=== PATIENT | female | born 1950 | race Two or more races ===

== ENCOUNTER 2025-01-22 11:20 | Day surgery (SDC) | payer OTHER, MEDICAID, SELFPAY ==
--- NOTE | 2025-01-19 06:34 | EKG_ITS ---
[facility] Test Date: 2025-01-19 Pat Name: ELLA JONES Department: Room: - Gender: Female Automobile Locator: SHAY : 1950 Requested By: Kevin Galloway Order Number: [id number] Reading MD: Kevin Galloway Measurements Intervals [place] Rate: 64 P: 20 DE: 204 QRS: 61 QRSD: 77 T: 16 QT: 411 QTc: 426 Interpretive Statements SINUS RHYTHM No previous ECG available for comparison /store/S0/[id number]
[2025-01-19 11:51] VITALS: BMI 24.9
[2025-01-19 12:18] LABS: Collection Type, Urine Clean Catch
[2025-01-19 13:17] LABS: Basophils # (Auto) 0.1 Thou/mm3 (0.0-0.2); Basophils % (Auto) 1 % (0-2.5); Eosinophils # (Auto) 0.2 Thou/mm3 (0.0-0.5); Eosinophils % (Auto) 3 % (0-10); Hematocrit 36.6 % (36.0-46.0); Immature Granulocytes % (Auto) 0 % (0-0); Immature Granulocytes Auto 0.02 Thou/mm3 (0.00-0.00); Lymphocytes # (Auto) 1.6 Thou/mm3 (1.0-4.8); Lymphocytes % (Auto) 22 % (10-50); Mean Corpuscular HGB Conc 32.8 g/dl (31.0-37.0); Mean Corpuscular Hemoglobin 29.3 pg (25.0-35.0); Mean Corpuscular Volume 89 fL (80-100); Monocytes # (Auto) 0.7 Thou/mm3 (0.0-0.8); Monocytes % (Auto) 10 % (0-12); Neutrophils # (Auto) 4.5 Thou/mm3 (1.8-7.7); Neutrophils % (Auto) 64 % (37-80); Nucleated Red Blood Cell % 0 /100 WBC (0); Platelet Count 304 Thou/mm3 (140-440); RDW Standard Deviation 42.5 fL (36.4-46.3); White Blood Count 7.1 Thou/mm3 (3.6-11.0)
[2025-01-19 13:18] LABS: Bilirubin,Urine Negative (Negative); Blood,Urine Negative (Negative); Clarity,Urine Clear (Clear/Hazy); Color,Urine Colorless (Lt Yel-Yel); Glucose, Urine Negative (Negative); Ketones,Urine Negative (Negative); Leukocyte Esterase,Urine Negative (Negative); Nitrite,Urine Negative (Negative); PH,Urine 6.5 (5.0-7.0); Protein,Urine Negative (Neg - Trace); RBC,Urine < 1 /hpf (0-3); Specific Gravity,Urine 1.008 (1.001-1.035); Squamous Epithelial Cell,Urine 1 /hpf (0-5); Urobilinogen,Urine Negative mg/dL (0.0-1.0); WBC,Urine < 1 /hpf (0-5)
[2025-01-19 13:26] LABS: Partial Thromboplastin Time 27.3 Seconds (22.0-36.0); Prothrombin Time 10.6 Seconds (9.0-12.2)
[2025-01-19 13:31] LABS: Alanine Aminotransferase 13 U/L (10-49); Albumin, Serum 4.7 gm/dL (3.4-4.8); Albumin/Globulin Ratio 1.8 (1.2-2.2); Alkaline Phosphatase 82 U/L (46-116); Anion Gap 8 (7-16); Aspartate Amino Transferase 21 U/L (0-34); BUN/Creatinine Ratio 19 Ratio (12-20); Bilirubin,Total 0.9 mg/dL (0.3-1.2); Blood Urea Nitrogen 15 mg/dL (9-23); Calcium 9.4 mg/dL (8.3-10.6); Calcium (Corrected) 9.4 mg/dL (8.5-10.1); Carbon Dioxide 30.4 mMol/L (20.0-31.0); Chloride 98 mMol/L (98-107); Creatinine (Component) 0.8 mg/dL (0.6-1.3); Estimated Creatinine Clearance 50.5 mL/min (>60); Globulin 2.6 gm/dL (2.3-3.5); Glucose 101 mg/dL (74-106); Osmolality,Calculated 272 (275-295); Potassium 3.7 mMol/L (3.4-5.1); Sodium 136 mMol/L (136-145); Total Protein 7.3 gm/dL (5.7-8.2); eGFR > 60 See Note
[2025-01-22] VITALS (10 sets, daily range): BP systolic 137–180; BP diastolic 52–96; PULSE 60–100; RESP 13–20; TEMP 36.2–36.8; O2SAT 95–100; BMI 25.9
--- NOTE | 2025-01-22 16:27 | PD.SUROPNT ---
Date of Procedure 01/22/25 Pre Op Diagnosis Left inguinal hernia Post Op Diagnosis Left sliding inguinal hernia Procedure Repair of sliding left inguinal hernia Findings This patient had a large hernia with weakness in the posterior wall of the inguinal canal. She had a sliding hernia with colon as part of the wall. Procedure Description Patient was examined in the preop area. Site and site were marked. Procedure was discussed with the patient in detail. The risk benefits alternatives were discussed with the patient and informed consent was obtained. The risks include bleeding infection recurrence of the hernia testicular atrophy and anesthesia related risks. The patient was brought to the operating room and placed on the operating table in supine position. General anesthesia was administered in a satisfactory manner. IV antibiotics were given to the patient. Local anesthesia 0.25% Marcaine was used as an adjunct. Curvilinear oblique incision is made in the right groin. This was deepened through the layers of skin subcutaneous tissue and Yordan's fascia. The superficial inferior epigastric veins were ligated and divided. Hemostasis was achieved. The hernia protrusion is quite large and extending out to from the external ring. External oblique aponeurosis was cleared and the external ring was defined. The shelving edge of the inguinal ligament was defined externally. A longitudinal incision was made in the external oblique aponeurosis. The inguinal canal was opened. The ilioinguinal nerve was protected. Upper and lower flaps of the external oblique aponeurosis were dissected away from the hernia sac. This was retracted with a self-retaining retractor. The cremaster muscle was incised and the hernia sac was identified. Hernia sac was gently dissected circumferentially at the neck. The round ligament was identified and it was ligated and divided and removed. After the sac was from the round ligament structures it was examined and the sliding nature of the hernia sac was found. Portion of the hernia sac was removed as specimen. The peritoneum was closed with 3-0 Vicryl pursestring suture and the hernia was reduced en viki. There was no tight hernia ring. The posterior wall of the inguinal canal was then examined. The conjoined tendon was defined. The posterior wall was repaired with interrupted 0 Ethibond interrupted sutures. This was approximating the the shelving edge of the inguinal ligament with the conjoined tendon and fascia transversalis. The first suture is passing through the periosteum of the pubic tubercle. The second suture was passing through the Ashish's ligament. Rest of them passing through the shelving edge of the inguinal ligament, fascia transversalis and conjoined tendon. Internal ring was closed. Operative field is thoroughly irrigated with saline solution and hemostasis is again achieved. The ilioinguinal nerve was placed back into the inguinal canal. External oblique aponeurosis is approximated by 3-0 PDS continuous suture. The external ring was closed. The subcutaneous tissues approximated by 3-0 Vicryl interrupted sutures and skin is approximated by 4-0 Monocryl subcuticular stitches. Steri-Strips were applied. Patient tolerated procedure very well. Complications none. Anesthesia GETA Drains None. Implants None. Pathology / specimen Other (Hernia sac) Estimated Blood Loss 5 Condition Stable Disposition PACU Surgeon Kevin Galloway MD Surgical Staff Operation Date: 01/22/25 13:45 Case Staff Anesthesiologist: Demario King RNchief controller center: Miesha Sommer NOTE SPECIALIST student Braden Jordan RN metal bonding worker Rosanna REDD metal bonding worker in processing Elsi Donis certified surgical tech/first assistant
--- NOTE | 2025-01-22 16:39 | SUR.PHASEI ---
pt received from OR in recovery bay 1. pt asleep but responds to voice, breathing unlabored on room air. v/s stable. pt dressing to abd cdi. report received from Dr. King and Braden RN/Rosanna REDD.
--- NOTE | 2025-01-22 18:30 | SUR.PHASEII ---
pt able to tolerate oral fluids without difficulty swallowing or nausea/vomiting.
--- NOTE | 2025-01-22 18:45 | SUR.PHASEII ---
pt awake and alert, breathing unlabored on room air. v/s stable. pt dressing to lower abd cdi. pt able to ambulate to wheelchair with steady gait. d/c instructions given with daughter Laila in room using jingle writer Valdez corrigan, all questions answered. pt d/c via wheelchair with all belongings.
--- NOTE | 2025-01-23 14:15 | PD.ANESPROG ---
Documentation for date of: 01/23/25 POST ANESTHESIA NOTE: Patient had GETA for L inguinal hernia repair yesterday. I just called her number for follow up but no answer. Demario King MD Anesthesia Progress Note Progress Note Most recent Vital Signs: Last Vital Signs Temp 97.4 F 01/22/25 18:10 Pulse 62 01/22/25 18:10 Resp 16 01/22/25 18:10 BP 146/78 H 01/22/25 18:10 Pulse Ox 95 01/22/25 18:10 O2 Flow Rate 2 01/22/25 17:55
== END 2025-01-22 18:45 | disposition home or self-care (01) ==
PROVIDERS: PCP Family Medicine; Referring Provider Specialist; Visit Provider Specialist
PROC: (CPT 49525; principal; 2025-01-22 13:30)
DX: K40.90 Unilateral inguinal hernia, without obstruction or gangrene, not specified as recurrent (principal)
CPT/HCPCS: 49525; 36415; 80053; 81001; 85025; 85610; 85730; 93005; A4217; A4649; J0690; J1100; J2405; J2704; J2710; J3010; J3490; J1596; J1805

== ENCOUNTER 2025-02-01 13:26 | Inpatient (IN) | payer OTHER, MEDICAID, MEDICARE, SELFPAY ==
[2025-02-01] VITALS (7 sets, daily range): BP systolic 134–156; BP diastolic 55–91; PULSE 76–90; RESP 12–64; TEMP 36.1–36.4; O2SAT 92–95; BMI 24.5
--- NOTE | 2025-02-01 15:26 | PD.SURHP ---
HPI Date of Admission 02/01/25 13:26 Chief Complaint Chief Complaint: Left groin postop hematoma HPI This 74 years old female patient had a large left inguinal hernia repair done about 10 to 12 days ago. She developed swelling in the left groin and she was found to have a postoperative hematoma in the left groin that requires incision and drainage patient is admitted here for that purpose. She will also need IV antibiotics. Further management will be necessary after the I&D was carried out. She also needs IV pain control. The risk benefits and alternatives were discussed with the patient and informed consent is obtained for incision and drainage of the left groin hematoma. Past Medical History Past Medical History NEUROLOGIC: Negative Neurological Disorders or Seizures CARDIAC: Positive Cardiac Disorders, Hypercholesterolemia, Hypertension and Varicose Veins; Negative Congestive Heart Failure RESPIRATORY: Negative Chronic Obstructive Pulmonary Disease (COPD) GASTROINTESTINAL: Positive Ulcer; Negative Gastrointestinal Disorders or Hepatitis GENITOURINARY: Negative Genitourinary Disorders or Renal Disease REPRODUCTIVE: Positive Previous Pregnancies MUSCULOSKELETAL: Negative Musculoskeletal Disorders ENDOCRINE: Negative Endocrine Disorders, Diabetes Mellitus Type 1 or Diabetes Mellitus Type 2 HEMATOLOGIC: Negative Blood Disorders OTHER HISTORY: Negative Hospitalization, Autoimmune Disease, Shingles, Blood Transfusions, Blood Transfusion Reaction, Anesthesia Reactions or Cancer Family History FAMILY HISTORY: Positive Family Cardiac Disorders and Family Surgery; Negative Family Psychiatric Problems, Family Respiratory Disorders, Family Gastrointestinal Problems, Family Cancer or Family Anesthesia Reaction Surgical History SURGICAL: Positive Tubal Ligation Social History SMOKING STATUS: Never smoker Meds Home Medications and Allergies Home Medications ?Medication ?Instructions ?Recorded ?Confirmed ?Type ergocalciferol (vitamin D2) 1,250 1,250 mcg PO QWEEK 01/19/25 01/19/25 History mcg (50,000 unit) capsule losartan 50 mg-hydrochlorothiazide 1 tab PO DAILY 01/19/25 01/19/25 History 12.5 mg tablet omeprazole 40 mg capsule,delayed 40 mg PO DAILY PRN acid reflux 01/19/25 01/19/25 History release rosuvastatin 20 mg tablet 20 mg PO DAILY 01/19/25 01/19/25 History Allergies Allergy/AdvReac Type Severity Reaction Status Date / Time No Known Allergies Allergy Verified 01/22/25 11:38 Exam Constitutional Constitutional: no acute distress Routine HEENT Exam Head: Present normocephalic Eye: Present EOMI and PERRL ENT: Present mucous membranes moist Routine Neck Exam Neck: Present supple and trachea midline Routine Chest/Breast/Axilla Exam Chest wall: Absent tenderness or mass Routine Respiratory Exam Respiratory: Present chest non-tender, lungs clear, normal breath sounds and no resp distress; Absent respiratory distress Routine Cardiovascular Exam Cardiovascular: Present RRR Routine Abdominal Exam Abdominal: Present soft and normoactive bowel sounds Comments: The left groin has recent surgical incision and swelling and ecchymosis indicative of a postop hematoma. There is no cellulitis or drainage. The needle aspiration showed that is a solid hematoma and a clot therefore requires a surgical I&D. Routine Extremities Exam Extremities: Present full ROM Routine Skin Exam Skin: Present intact, dry and warm Routine Neurological Exam Neurological: Present alert, oriented X3 and CN II-XII intact Routine Psychiatric Exam Psychiatric: Present normal affect and normal thought process Assessment & Plan Problem List (1) Postoperative hematoma: Qualifiers: Surgical complication system/body Area: musculoskeletal system Procedure type: musculoskeletal Qualified Code(s): M96.840 - Postprocedural hematoma of a musculoskeletal structure following a musculoskeletal system procedure Status: Acute (2) Left inguinal hernia: Status: Acute Plan Incision and drainage of the left groin hematoma. Quality Measures Quality Measures none Advance care planning discussed with:: patient
[2025-02-01] MEDS: DEXTROSE 5%-LACTATED RINGERS 1,000 ML 100 ML IV (15:49)
[2025-02-01] MEDS: ceFAZolin/D5W 2 GM IV 2 GM/100 ML BAG IV ×2 (15:57→21:53)
[2025-02-01 17:37] LABS: Anion Gap 9 (7-16); BUN/Creatinine Ratio 12 Ratio (12-20); Blood Urea Nitrogen 11 mg/dL (9-23); Calcium 9.4 mg/dL (8.3-10.6); Carbon Dioxide 31.3 mMol/L (20.0-31.0); Chloride 95 mMol/L (98-107); Creatinine (Component) 0.9 mg/dL (0.6-1.3); Estimated Creatinine Clearance 44.6 mL/min (>60); Glucose 126 mg/dL (74-106); Osmolality,Calculated 271 (275-295); Potassium 3.2 mMol/L (3.4-5.1); Sodium 135 mMol/L (136-145); eGFR > 60 See Note
--- NOTE | 2025-02-01 18:45 | SUR.PHASEI ---
Pt. arrived to recovery via gurney, eyes open, AAOx3, no c/o pain or nausea at this time, lung sounds clear, equal expansion melchor., dressing to left side of groin, kerlix roll, packing, abdominal pad and metaport tape in place, no active bleeding or redness noted, bruising to left upper thigh noted. Report received from Wally REDD and Dr. King.
--- NOTE | 2025-02-01 18:49 | ESOP_ITS ---
Date of Procedure 02/01/25 Pre Op Diagnosis Postoperative wound hematoma left groin Post Op Diagnosis Same. Procedure Incision and drainage of wound hematoma left groin Findings This patient had a previous left inguinal hernia repair. She had a large hernia. She developed a hematoma in the subcutaneous tissue. This required drainage and removal of the blood clots. There was no active bleeding. There was some oozing therefore I decided to pack the wound and bring the patient back in 48 hours Procedure Description Patient is evaluated in the preoperative area. The procedure is discussed in detail with the patient with an online staff interpreter. Patient understood the procedure and that to be incision and drainage. Risk benefits and alternatives were discussed with the patient and the daughter and informed consent is obtained. The patient is then taken to the operating room general anesthesia is administered. Abdomen groin and genitalia thigh regions are prepped and draped in usual manner. Patient was given IV antibiotics. Patient procedure Timeout was carried out in the and the procedure was started. The previous incision was opened and semisolid blood clots were removed. After all the blood clots were physically removed then the cavity was irrigated and debrided with pulsatile Pulsavac system with 3 L of normal saline with 80 mg of gentamicin. After satisfactory debridement is carried out in this manner the cavity is packed with Kerlix gauze which was soaked in gentamicin solution. Then this was closed over by a single [id number] 2-0 nylon stitch to hold the packing in place. Sterile dressing is applied. Patient will be brought back in 48 hours for relocation removal of the packing and secondary closure. Patient tolerated the procedure very well and transferred to the recovery room in satisfactory condition. Anesthesia GETA Drains none Implants none Pathology / specimen None Estimated Blood Loss 10 Condition Stable Disposition PACU Surgeon Kevin Galloway MD Surgical Staff Operation Date: 02/01/25 17:00 Case Staff Anesthesiologist: Demario King RNplug overwrap machine tender: Salud Zhu surgical services assistant Wally REDD homeland security program specialist (1) Postoperative hematoma Qualifiers: Surgical complication system/body Area: musculoskeletal system Procedure type: musculoskeletal Qualified Code(s): M96.840 - Postprocedural hematoma of a musculoskeletal structure following a musculoskeletal system procedure
--- NOTE | 2025-02-01 19:13 | PC.NURSE ---
GOT REPORT FROM Kassandra REDD, pt in surgery.
--- NOTE | 2025-02-01 19:21 | SUR.PHASEI ---
Called and gave report on pt. s/p surgery to Re REDD on M/S unit.
--- NOTE | 2025-02-01 19:23 | SUR.PHASEI ---
Pt. transferred to room 376 via GARRETT torres, no c/o pain or nausea at this time, IV flushed and patent, dressing to left groin Re CONCEPCION RN assumed care of.
[2025-02-02] VITALS (10 sets, daily range): BP systolic 110–132; BP diastolic 47–65; PULSE 68–80; RESP 16–96; TEMP 36–37; O2SAT 92–99; BMI 24.5
[2025-02-02] MEDS: ACETAMINOPHEN IVPB 1,000 MG/100 ML VIAL 250 MG IV ×4 (00:23→17:06)
[2025-02-02] MEDS: ceFAZolin/D5W 2 GM IV 2 GM/100 ML BAG IV ×3 (05:46→21:44)
[2025-02-02] MEDS: LOSARTAN POTASSIUM 25 MG TABLET 50 MG PO (08:44)
[2025-02-02] MEDS: ROSUVASTATIN 5 MG TABLET (NON-FORM) 20 MG PO (08:49)
[2025-02-02] MEDS: DEXTROSE 5%-LACTATED RINGERS 1,000 ML 60 ML IV (13:01)
--- NOTE | 2025-02-02 15:38 | PC.SS ---
Patient is alert/oriented. Yi speaking only. Tool Turret Lathe Set Up Operator present. Patient was independent with ADL's. Patient was admitted for hematoma left groin. Patient resides with her spouse. Patient states she will be returning home with . Patient's family provides transportation assistance. PCP: DIANE. Pharmacy: [facility]. No further d/c needs. Alt medical decision maker: spouse, Floyd,
--- NOTE | 2025-02-02 17:09 | PD.SURPROG ---
Documentation for date of: 02/02/25 Subjective Subjective Brief History: This 74 years old female patient had a large left inguinal hernia repair done about 10 to 12 days ago. She developed swelling in the left groin and she was found to have a postoperative hematoma in the left groin that requires incision and drainage patient is admitted here for that purpose. She will also need IV antibiotics. Further management will be necessary after the I&D was carried out. She also needs IV pain control. The risk benefits and alternatives were discussed with the patient and informed consent is obtained for incision and drainage of the left groin hematoma. Postop day 1 after incision and drainage of hematoma left groin. Patient is doing well she has minimal pain the dressing was changed there is some drainage the packing is in place the packing will be removed tomorrow and a secondary closure will be carried out. Risk benefits and alternatives were discussed with the patient and informed consent is obtained. Exam Vital Signs Temp Pulse Resp BP Pulse Ox O2 Del Method 96.9 F 68 16 124/60 96 Room Air 02/02/25 11:59 02/02/25 14:56 02/02/25 14:56 02/02/25 11:59 02/02/25 11:59 02/02/25 11:59 Narrative Exam Patient is alert oriented and conscious not in any pain she is getting IV pain medications. She is complaining of drainage from the wound dressing in the left groin the dressing is changed and redressed. There is no more bleeding is just old drainage. Abdomen is soft and nontender nondistended bowel tones are present cardiopulmonary examination is normal extremities are unremarkable. Assessment & Plan Diagnosis (1) Postoperative hematoma: Status: Acute (2) Left inguinal hernia: Status: Acute Plan Patient will be kept n.p.o. after midnight tomorrow taken to the operating room and then we will remove the packing and do secondary wound closure. Discharge planning home tomorrow. Procedures Procedure Date 02/01/25 Procedures Incision and drainage of wound hematoma left groin 02/01/2025 (1) Postoperative hematoma Qualifiers: Surgical complication system/body Area: musculoskeletal system Procedure type: musculoskeletal Qualified Code(s): M96.840 - Postprocedural hematoma of a musculoskeletal structure following a musculoskeletal system procedure
[2025-02-03] VITALS (13 sets, daily range): BP systolic 114–162; BP diastolic 58–93; PULSE 67–89; RESP 16–96; TEMP 36.1–37; O2SAT 93–99
[2025-02-03] MEDS: ceFAZolin/D5W 2 GM IV 2 GM/100 ML BAG IV ×3 (05:39→22:01)
[2025-02-03] MEDS: LOSARTAN POTASSIUM 25 MG TABLET 50 MG PO (08:40)
[2025-02-03] MEDS: DEXTROSE 5%-LACTATED RINGERS 1,000 ML 60 ML IV (08:45)
--- NOTE | 2025-02-03 09:20 | PD.SURPROG ---
Documentation for date of: 02/03/25 Subjective Subjective Brief History: This 74 years old female patient had a large left inguinal hernia repair done about 10 to 12 days ago. She developed swelling in the left groin and she was found to have a postoperative hematoma in the left groin that requires incision and drainage patient is admitted here for that purpose. She will also need IV antibiotics. Further management will be necessary after the I&D was carried out. She also needs IV pain control. The risk benefits and alternatives were discussed with the patient and informed consent is obtained for incision and drainage of the left groin hematoma. Postop day 1 after incision and drainage of hematoma left groin. Patient is doing well she has minimal pain the dressing was changed there is some drainage the packing is in place the packing will be removed tomorrow and a secondary closure will be carried out. Risk benefits and alternatives were discussed with the patient and informed consent is obtained. Postop day 2 after incision and drainage of hematoma left groin patient needs to have irrigation debridement and secondary closure of the wound. I talked to the patient via an nitroglycerin separator operator service [facility] has and informed consent was obtained the name of the person is Genna RAMOS and her number is [id number]. The patient's daughter is in the room and all questions were discussed and answered to the patient's satisfaction. Patient complaining that she has been constipated and wants to go to the restroom but she is not getting out of the bed and has not gone to the restroom. She will be prescribed lactulose. Exam Vital Signs Temp Pulse Resp BP Pulse Ox O2 Del Method 98.1 F 76 17 138/66 H 95 Room Air 02/03/25 07:43 02/03/25 08:40 02/03/25 07:43 02/03/25 08:40 02/03/25 07:43 02/03/25 07:43 Narrative Exam There is no change in her physical condition. In the left groin has no more bleeding and has mild drainage on the dressing. The packing is in place. The packing will be removed and wound will be debrided and irrigated and secondary closure will be carried out. Cardiopulmonary examination is normal. Assessment & Plan Diagnosis (1) Postoperative hematoma: Status: Acute (2) Left inguinal hernia: Status: Acute Procedures Procedure Date 02/01/25 Procedures Incision and drainage of wound hematoma left groin 02/01/2025 (1) Postoperative hematoma Qualifiers: Surgical complication system/body Area: musculoskeletal system Procedure type: musculoskeletal Qualified Code(s): M96.840 - Postprocedural hematoma of a musculoskeletal structure following a musculoskeletal system procedure
--- NOTE | 2025-02-03 10:58 | PD.SUROPNT ---
Date of Procedure 02/03/25 Pre Op Diagnosis Hematoma left groin postop left inguinal hernia repair Post Op Diagnosis Same Procedure Incision and debridement of wound hematoma and secondary wound closure on February 03, 2025 incision and drainage of wound hematoma left groin 02/01/2025 Findings This patient had a wound hematoma that was drained 2 days ago. It was packed with Kerlix gauze including gentamicin solution. In the operating room the packing was removed and patient was found to have no bleeding and no hematoma and the wound surfaces appeared to be clean. The small areas of devitalized fat was debrided with Pulsavac gentamicin solution. Gentamicin solution was constituted as 80 mg and 3 L of normal saline. Procedure Description The patient was interviewed along with her daughter with a cardiac exercise specialist. The procedure was explained to the patient and the daughter and all questions were answered. Risk benefits and alternatives were discussed including indication and expectation from the procedure of debridement and secondary wound closure with the Wai-Partida. Informed consent was obtained. Patient was then taken to the operating room. She was placed supine on the operating table. General anesthesia was administered in the satisfactory manner. Abdomen groin and thigh regions were prepped and draped in usual manner. A timeout procedure is carried out. Patient was given IV antibiotics. The holding suture was removed and the packing was removed. The operative field was examined carefully there is no bleeding. Pulsavac gentamicin solution is used for irrigating pulsatile debridement of the wound with about 3 L of saline and 80 mg of gentamicin in it. After that the wound is examined again there is no bleeding. By separate stab incision 8 [place] flat Wai-Partida is introduced into the bottom of the wound and sutured to the skin using 3-0 nylon interrupted suture. After that I put 3 retention type of a larger 2-0 nylon sutures and then in between I used 3-0 nylon to close the remaining skin. Estimated loss of blood less than 10 cc patient taught the procedure very well. Sterile dressing was applied along with an ABD pad. The Wai-Partida was connected to the bulb. Anesthesia GETA Drains Wai-Partida 8 [place] flat Implants None. Pathology / specimen None Estimated Blood Loss 10 Condition Stable Disposition PACU Surgeon Kevin Galloway MD Surgical Staff Operation Date: 02/03/25 09:00 Case Staff Anesthesiologist: Enio Renae Donis surgical training specialist Alexis REDD information services consultant traveler (1) Postoperative hematoma Qualifiers: Surgical complication system/body Area: musculoskeletal system Procedure type: musculoskeletal Qualified Code(s): M96.840 - Postprocedural hematoma of a musculoskeletal structure following a musculoskeletal system procedure
--- NOTE | 2025-02-03 11:00 | SUR.PHASEI ---
received report and pt from IVANIA Mariscal and Dr. Renae. Pt awake, A&O x4, follows commands. VSS. dressing left lower quad of abd w/ HERBERT drain w/ serousanguinous drainage noted. IV in place, no s/s of of infiltration or redness noted.
--- NOTE | 2025-02-03 11:19 | SUR.PHASEI ---
pt vss, pt tolerated water, denies any pain or nausea. dressing remains CDI, small amount of seroussanguinous drainage noted in antonio drain.
--- NOTE | 2025-02-03 11:26 | SUR.PHASEI ---
pt's vss, recovering well. report given to RN Madison. dressing to left lower abd remains CDI, IV in place and remains free infiltration or redness to site.
[2025-02-03] MEDS: HYDROcodone/APAP 10/325 TAB PO (13:51)
[2025-02-03] MEDS: LACTULOSE SYRUP 20 GM/30 ML UDC 10 GM PO (21:57)
[2025-02-04] VITALS (7 sets, daily range): BP systolic 131–151; BP diastolic 57–70; PULSE 66–84; RESP 14–96; TEMP 36.3–36.8; O2SAT 94–98
[2025-02-04] MEDS: ceFAZolin/D5W 2 GM IV 2 GM/100 ML BAG IV ×2 (05:32→13:40)
[2025-02-04] MEDS: LACTULOSE SYRUP 20 GM/30 ML UDC 10 GM PO (05:33)
[2025-02-04] MEDS: DEXTROSE 5%-LACTATED RINGERS 1,000 ML 60 ML IV (05:34)
[2025-02-04] MEDS: ROSUVASTATIN 5 MG TABLET (NON-FORM) 20 MG PO (08:41)
[2025-02-04] MEDS: LOSARTAN POTASSIUM 25 MG TABLET 50 MG PO (08:41)
--- NOTE | 2025-02-04 13:01 | ESPR_ITS ---
Documentation for date of: 02/04/25 Subjective Subjective Brief History: This 74 years old female patient had a large left inguinal hernia repair done about 10 to 12 days ago. She developed swelling in the left groin and she was found to have a postoperative hematoma in the left groin that requires incision and drainage patient is admitted here for that purpose. She will also need IV antibiotics. Further management will be necessary after the I&D was carried out. She also needs IV pain control. The risk benefits and alternatives were discussed with the patient and informed consent is obtained for incision and drainage of the left groin hematoma. Postop day 1 after incision and drainage of hematoma left groin. Patient is doing well she has minimal pain the dressing was changed there is some drainage the packing is in place the packing will be removed tomorrow and a secondary closure will be carried out. Risk benefits and alternatives were discussed with the patient and informed consent is obtained. Postop day 2 after incision and drainage of hematoma left groin patient needs to have irrigation debridement and secondary closure of the wound. I talked to the patient via an supervisor finishing room service [facility] has and informed consent was hawa garcia the name of the person is Genna RAMOS and her number is [id number]. The patient's daughter is in the room and all questions were discussed and answered to the patient's satisfaction. Patient complaining that she has been constipated and wants to go to the restroom but she is not getting out of the bed and has not gone to the restroom. She will be prescribed lactulose. Stop day 3 after I&D of hematoma left groin and postop day 1 status post debridement and secondary closure. This patient is doing well she has not many complaints she is eating happily her lunch and ambulating by herself. Wai- Partida drain is drained only 7 cc of serosanguineous fluid. Patient wants to go home. Exam Vital Signs Temp Pulse Resp BP Pulse Ox O2 Del Method 97.4 F 67 18 151/70 H 98 Room Air 02/04/25 12:00 02/04/25 12:00 02/04/25 12:00 02/04/25 12:00 02/04/25 12:02/04/25 12:00 Narrative Exam Abdomen is soft and nontender. Left groin area has intact stitches in place and Wai-Partida is in place. There is no evidence of infection. There is no drainage from the wound. Cardiopulmonary examination is normal extremities are unremarkable. Assessment & Plan Diagnosis (1) Postoperative hematoma: Status: Acute (2) Postoperative pain: Status: Acute (3) Left inguinal hernia: Status: Acute Plan Discharge patient home to be followed in the office within 1 week. Patient's family to manage the Wai-Partida drainage as taught by the nursing staff. Procedures Procedure Date 02/01/25 Procedures Incision and debridement of wound hematoma and secondary wound closure on February 03, 2025 incision and drainage of wound hematoma left groin 02/01/2025 (1) Postoperative hematoma Qualifiers: Surgical complication system/body Area: musculoskeletal system Procedure type: musculoskeletal Qualified Code(s): M96.840 - Postprocedural hematoma of a musculoskeletal structure following a musculoskeletal system procedure
--- NOTE | 2025-02-04 13:04 | ESDS_ITS ---
Planned Discharge Date 02/04/25 DS: Providers Provider Date of admission: 02/01/25 13:26 Primary care physician: Physician No Primary/Family Admitting Provider: Kevin Galloway MD Attending Provider on Admission: Kevin Galloway MD Attending Provider on DC: Kevin Galloway MD Discharging Provider: Kevin Galloway MD Diagnosis Discharge Diagnosis (1) Postoperative hematoma: Status: Acute (2) Left inguinal hernia: Status: Acute (3) Postoperative pain: Status: Acute Problem List Completed Was Problem List Reviewed/Reconciled?: Yes Hospital Course This patient was admitted from the emergency room with a hematoma in the left groin. She is status post left inguinal hernia repair. She developed a collection of blood in the wound and therefore required incision and drainage. Patient was taken to the operating room incision and drainage was carried out and no bleeding was found just oozing from the surfaces. She did have a large inguinal hernia. Removal of the hematoma the cavity was packed with gentamicin containing gauze and patient was taken back to the operating room in 48 hours and the packing was removed there was no bleeding and the secondary closure was carried out and a Wai-Partida drain was left in the wound so as to evacuate any further collection of fluid. Next day patient had minimal amount of drain age she had bowel movements and is ambulating really well. The wound looks good and there is no infection Wai-Partida is in place and the dressing was changed and patient was discharged home. To be followed in Dr. Galloway's office within 7 days. Family to manage the Wai-Partida evacuation. Status at Discharge Functional status at discharge: independent ambulation Exam Vital Signs Temp Pulse Resp BP Pulse Ox O2 Del Method 97.4 F 67 18 151/70 H 98 Room Air 02/04/25 12:00 02/04/25 12:00 02/04/25 12:00 02/04/25 12:00 02/04/25 12:02/04/25 12:00 Narrative Exam The abdomen is soft and nontender nondistended bowel tones are normal there is a scar in the left groin and a Wai-Partida is in place and there is no infection there is minimal drainage from the Wai-Partida. Cardiopulmonary examination is normal extremities are unremarkable. Discharge Plan Plan Patient Disposition: HOME (Self Care) Disposition Comment: Follow-up in the office in 7 days Prescriptions/Referrals Prescriptions/Med Rec: New hydrocodone-acetaminophen 10-325 mg tablet 1 tab PO Q6H MDD 3 PRN (Reason: pain) Qty: 20 0RF amoxicillin-pot clavulanate [Augmentin] 500-125 mg tablet 1 tab PO TID Qty: 30 0RF Continued losartan-hydrochlorothiazide 50-12.5 mg tablet 1 tab PO DAILY Patient Comments: TOME 1 TABLETA POR V A ORAL TODOS LOS D rosuvastatin 20 mg tablet 20 mg PO DAILY Patient Comments: TOME 1 TABLETA POR V A ORAL TODOS LOS D Referrals: No Primary/Family,Physician [Primary Care Provider] - Patient/Caregiver Discharge Instructions Other Discharge Activity Instructions:: Wai-Partida drain 3 times a day and record what comes out. May take shower from tomorrow keep the incision area dry. Dressing changes as per instructed by the nursing staff Other Discharge Diet Instructions: Advance to regular diet Print Language: Occitan Stand Alone Forms: [facility] Award Info., Patient Portal Info Letter Discharge Order Discharge Orders: Discharge (Routine); Ordered 02/04/25 Ordered By: Kevin Galloway Procedures Procedure Date 02/01/25 Procedures Incision and debridement of wound hematoma and secondary wound closure on February 03, 2025 incision and drainage of wound hematoma left groin 02/01/2025 (1) Postoperative hematoma Qualifiers: Surgical complication system/body Area: musculoskeletal system Procedure type: musculoskeletal Qualified Code(s): M96.840 - Postprocedural hematoma of a musculoskeletal structure following a musculoskeletal system procedure
[2025-02-04] MEDS: HYDROcodone/APAP 10/325 TAB PO (14:45)
== END 2025-02-04 17:44 | disposition home or self-care (01) | DRG 921 ==
PROVIDERS: Anesthesiology; Admitting Provider Specialist; Visit Provider Specialist
PROC: 0Y963ZZ Drainage of Left Inguinal Region, Percutaneous Approach (ICD-10-PCS; principal; 2025-02-01 17:00)
DX: M96.840 Postprocedural hematoma of a musculoskeletal structure following a musculoskeletal system procedure (principal); S30.1XXA Contusion of abdominal wall, initial encounter; Y83.8 Other surgical procedures as the cause of abnormal reaction of the patient, or of later complication, without mention of misadventure at the time of the procedure; K40.90 Unilateral inguinal hernia, without obstruction or gangrene, not specified as recurrent; K59.00 Constipation, unspecified
CPT/HCPCS: 36415; 80048; 93225; A4217; A4649; J0131; J0689; J1580; J2405; J2704; J2765; J3010; J3490; J7121; A9270